=== PATIENT | male | born 1995 | race Caucasian/White ===

== ENCOUNTER 2017-01-16 07:28 | Emergency (ER) | payer OTHER ==
[~2017-01-16] VITALS: Ht 180.3 cm; Wt 81.6 kg
[~2017-01-16 07:28] MED LIST: AZIT250T PO; IBUP600T16 PO
[2017-01-16 07:38] VITALS: BP 131/77
--- NOTE | 2017-01-16 07:56 | PHYS DOC ---
General Chief Complaint: NAUSEA/VOMITING/DIARRHEA Stated Complaint: DIARRHEA X 3 DYS Time Seen by MD: 07:32 Source: patient Exam Limitations: no limitations Problems: History of Present Illness Initial Comments Pt is 21/M to ED c/o n/v/d. Pt states three days ago sudden onset n/v/d/chills/sweats/myalgias. Numerous loose watery stools no blood noted in stool/emesis. Was able to keep some liquids down yesterday but estimates 16 loose watery stools overnight. Weak/ dizzy with decrease urination today, no focal abdominal pain complaints. Timing/Duration: constant (3 days) Severity: severe Modifying Factors: worse with eating, worse with movement, improves with rest Associated Symptoms: diaphoresis, fever/chills, headaches, malaise, nausea/ vomiting, weakness, other Allergies: Coded Allergies: Sulfa (Sulfonamide Antibiotics) (Verified Allergy, Intermediate, 07/25/16) Past Medical History Medical History: no pertinent history Surgical History: noncontributory Social History Smoker: chew Alcohol: rarely Drugs: none Review of Systems Constitutional: denies chills, diaphoresis, denies fever, malaise Respiratory: denies cough, denies shortness of breath Cardiovascular: denies chest pain, denies palpitations Gastrointestinal: see HPI Genitourinary: denies dysuria, denies frequency, denies hematuria Musculoskeletal: see HPI, denies joint swelling, denies neck pain Psychiatric/Neurological: see HPI, denies numbness, denies paresthesia, denies weakness Hematologic/Lymphatic: denies blood clots, denies easy bleeding, denies easy bruising Physical Exam General Appearance: WD/WN, moderate distress Eyes: bilateral eye normal inspection, bilateral eye PERRL, bilateral eye EOMI Ear, Nose, Throat: hearing grossly normal, normal ENT inspection, normal pharynx Neck: non-tender, supple Respiratory: normal breath sounds, no respiratory distress Cardiovascular: normal peripheral pulses, regular rate, rhythm Gastrointestinal: soft (ND, BS nl, generalized muscle TTP no r/g/mass, neg mcburney/davis), no organomegaly Rectal: deferred Back: no CVA tenderness, no vertebral tenderness Extremities: non-tender, normal inspection Neurologic/Psychiatric: sas programmer remote II-XII nml as tested, no motor/sensory deficits, alert, normal mood/affect, oriented x 3 Skin: normal color, warm/dry Orders, Labs, Meds PATIENT: KOMAL DELGADO ACCOUNT: [id number] : 1995 LOCATION: ER AGE: 21 SEX: M EXAM STATUS: PRE ER ORD. PHYSICIAN: AMY CYR DO REASON: n/v/d PROCEDURE: ACUTE ABDOMEN SERIES Examination: Acute abdomen series History: History of abdominal pain, nausea, vomiting, diarrhea Comparison: None available Findings: The cardiomediastinal silhouette grossly appears unremarkable. There is no acute infiltrate or visualized pneumothorax identified The bowel gas pattern appears unremarkable. Tiny faint calcifications identified in the right upper quadrant and in the right pelvis region could be calcifications in the bowel probably food material, given the appearance. Impression: 1. No acute cardiopulmonary findings. 2. Unremarkable bowel gas pattern. 3.Tiny faint calcifications identified in the right upper quadrant and in the right pelvis region could be calcifications in the bowel probably food material, given the appearance. DICTATED AND SIGNED BY: AISLINN GARCES MD DATE: 01/16/17827 CC: BRICE CAMPOVERDE; AMY CYR DO ~ Labs/urine unremarkable Pt feeling much better with zofran/IV fluids. No further emesis, pain controlled. He expressed agreement/understanding with treatment plan. Departure Time of Disposition: 08:59 Disposition: 01 HOME, SELF-CARE Diagnosis: gastroenteritis, likely viral Condition: GOOD Patient Instructions: Viral Gastroenteritis, [id number] Additional Instructions: Rest, no strenuous activity. Clear liquids, advance to bland diet tomorrow as tolerated. Aggressive hydration with gatorade, water. OTC probiotics or cultured yogurt daily (alfred miguel) Rx: zofran odt, dicyclomine. Follow up with your doctor next week if not better. Return to ED with new or changing symptoms. AMY CYR DO January 16, 2017 07:56
[2017-01-16] MEDS ORDERED: IV NORMAL SALINE 1,000ML 1,000 ML IV SCH (08:15)
[2017-01-16] MEDS ORDERED: LIDOCAINE/PRILOCAINE TOPICAL CREAM 5GM TUBE. TP ONE (08:15)
[2017-01-16] MEDS ORDERED: ONDANSETRON PF 4 MG/2 ML VIAL. IV ONE (08:15)
[2017-01-16] MEDS ORDERED: FAMOTIDINE 20 MG/2 ML VIAL IVP ONE (08:15)
[2017-01-16 08:18] LABS: BASO % 0 % (0-3); EOS # 0.1 x10^3/uL (0.0-0.7); EOS % 2 % (0-3); HEMATOCRIT 43.9 % (39.0-53.0); HEMOGLOBIN 15.2 g/dL (13.0-17.5); LYMPH # 1.9 x10^3/uL (1.0-4.8); LYMPH % 36 % (24-48); MEAN CORPUSCULAR HEMOGLOBIN 31 pg (25-35); MEAN CORPUSCULAR HGB CONC 35 g/dL (31-37); MEAN CORPUSCULAR VOLUME 88 fL (79-100); MONO # 0.6 x10^3/uL (0.0-1.1); MONO % 10 % (0-9); NEUT # 2.8 x10^3uL (1.8-7.7); NEUT % 51 % (31-73); PLATELET COUNT 190 x10^3/uL (140-400); RED CELL DISTRIBUTION WIDTH 12.9 % (11.5-14.5); WHITE BLOOD COUNT 5.4 x10^3/uL (4.0-11.0)
[2017-01-16 08:20] LABS: BACTERIA,URINE 0 /HPF (0-FEW); BILIRUBIN,URINE NEG (NEG); CLARITY,URINE CLEAR; COLOR,URINE YELLOW; GLUCOSE,URINE NEG (NEG); NITRITE,URINE NEG (NEG); RBC,URINE OCC /HPF (0-2); SQUAMOUS EPITHELIAL CELL,UR OCC /LPF; UROBILINOGEN,URINE 0.2 mg/dL (0.2 mg/dL); WBC,URINE 0 /HPF (0-4)
[2017-01-16 08:22] LABS: AMPHETAMINE/METHAMPHETAMINE NEG (NEG); BARBITURATES NEG (NEG); BENZODIAZEPINES NEG (NEG); CANNABINOIDS NEG (NEG); COCAINE NEG (NEG); METHADONE NEG (NEG); OPIATES NEG (NEG); PHENCYCLIDINE NEG (NEG)
[2017-01-16 08:31] LABS: ALBUMIN 4.2 g/dL (3.4-5.0); ALBUMIN/GLOBULIN RATIO 1.2 (1.0-1.7); CALCIUM 9.1 mg/dL (8.5-10.1); CREATININE 1.1 mg/dL (0.7-1.3); POTASSIUM 4.2 mmol/L (3.5-5.1); TOTAL BILIRUBIN 0.7 mg/dL (0.2-1.0); TOTAL PROTEIN 7.7 g/dL (6.4-8.2)
--- NOTE | 2017-01-16 08:34 | RAD ---
Examination: Acute abdomen series History: History of abdominal pain, nausea, vomiting, diarrhea Comparison: None available Findings: The cardiomediastinal silhouette grossly appears unremarkable. There is no acute infiltrate or visualized pneumothorax identified The bowel gas pattern appears unremarkable. Tiny faint calcifications identified in the right upper quadrant and in the right pelvis region could be calcifications in the bowel probably food material, given the appearance. Impression: 1. No acute cardiopulmonary findings. 2. Unremarkable bowel gas pattern. 3.Tiny faint calcifications identified in the right upper quadrant and in the right pelvis region could be calcifications in the bowel probably food material, given the appearance.
[2017-01-16] MEDS ORDERED: ONDA4TAB10 PO (09:03)
[2017-01-16] MEDS ORDERED: DICY20TA3 PO (09:03)
== END 2017-01-16 09:58 | disposition home or self-care (01) ==
LOC: ER 07:28
DX: K52.9 Noninfective gastroenteritis and colitis, unspecified (principal); F17.220 Nicotine dependence, chewing tobacco, uncomplicated; Z88.2 Allergy status to sulfonamides
CPT/HCPCS: 36415; 74022; 80053; 80305; 81001; 82550; 83690; 85027; 96361; 96374; 96375; 99285; J2405; S0028; G0481; J7030

== ENCOUNTER 2018-12-08 20:35 | Emergency (ER) | payer OTHER ==
[~2018-12-08] VITALS: Ht 180.3 cm; Wt 90.7 kg
[~2018-12-08 20:35] MED LIST changes: +DICY20TA3 PO; +ONDA4TAB10 PO
--- NOTE | 2018-12-08 21:25 | PHYS DOC ---
Past History Past Medical History: Anxiety, Other Past Surgical History: Tonsillectomy Alcohol Use: None Drug Use: None Adult General Chief Complaint Chief Complaint: LOWER EXT PAIN [facility] HPI Patient is a 23-year-old male who presents with complaint of swelling and pain to his right lower leg. Patient states that he had injured his knee a little over a week ago and is scheduled to have an MRI tomorrow. He states that today he noticed swelling around his ratliff which had not been present prior to today. He states that areas also tender to palpation. He denies any cough, shortness of breath or chest pain. He rates pain in his lower leg is moderate and states the pain is worsened with weightbearing. Review of Systems Review of Systems Constitutional: Denies fever or chills [] Respiratory: Denies cough or shortness of breath [] Cardiovascular: No additional information not addressed in HPI [] Musculoskeletal: Complains of right knee and lower leg pain [] Allergies Allergies Allergies Coded Allergies Type Severity Reaction Last Updated Verified Sulfa (Sulfonamide Antibiotics) Allergy Intermediate 07/25/16 Yes Physical Exam Physical Exam Constitutional: Well developed, well nourished, no acute distress, non-toxic appearance. [] Cardiovascular:Heart rate regular rhythm, no murmur [] Lungs & Thorax: Bilateral breath sounds clear to auscultation [] Extremities: Examination of the right lower leg demonstrates some soft tissue swelling anteriorly in the anterior tibial region with small amount of ecchymosis and tenderness to palpation. There is no calf tenderness on exam. [] Current Patient Data Vital Signs Vital Signs Date Time Temp Pulse Resp B/P (MAP) Pulse Ox O2 Delivery O2 Flow Rate FiO2 12/08/18 20:52 98.1 72 20 97 Room Air EKG EKG [] Radiology/Procedures Radiology/Procedures [] Course & Med Decision Making Course & Med Decision Making Pertinent Labs and Imaging studies reviewed. (See chart for details) [] Dragon Disclaimer Dragon Disclaimer This electronic medical record was generated, in whole or in part, using a voice recognition dictation system. Departure Departure: Impression: Primary Impression: Swelling of lower extremity Disposition: 01 HOME, SELF-CARE Condition: STABLE Referrals: HOMERO MUNIZ PA-C (PCP) Patient Instructions: Edema, Musculoskeletal Pain KEVIN ROSEN Jr. DO Dec 08, 2018 21:25
[2018-12-08 22:50] VITALS: BP 124/78
== END 2018-12-08 22:55 | disposition home or self-care (01) ==
LOC: ER 20:35
DX: R22.41 Localized swelling, mass and lump, right lower limb (principal); M79.661 Pain in right lower leg; F41.9 Anxiety disorder, unspecified; Z88.2 Allergy status to sulfonamides
CPT/HCPCS: 36415; 85379; 99283

== ENCOUNTER 2020-12-15 11:35 | Emergency (ER) | payer OTHER ==
[~2020-12-15] VITALS: Ht 180.3 cm; Wt 95.9 kg
[2020-12-15 11:45] VITALS: BP 125/87
[2020-12-15] MEDS: BACITRACIN ZINC TOPICAL OINT PACKET. TP ONE (12:34)
[2020-12-15] MEDS: AMOXICILLIN/K CLAV 875/125MG TABLET. PO ONE (12:34)
--- NOTE | 2020-12-15 12:53 | PHYS DOC ---
Past History Past Medical History: Anxiety, Other Past Surgical History: Tonsillectomy Alcohol Use: None Drug Use: None Adult General Chief Complaint Chief Complaint: ANIMAL BITE HPI HPI Patient is a 25-year-old male who presents to the emergency department complaining of a dog bite injury to the right distal forearm. 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 Patient states the dogs immunizations are up-to-date, his [employer] employer is contacting animal control related to this incident. Patient states his immunizations are up-to-date, states his tetanus shot was less than 5 years. Patient states he is not worried that the dog has rabies and believes that the dog does not. Patient complains of mild swelling to the right distal wrist, minor bleeding, did not take any medications for pain, states his pain is a 4/10 pain on a 1-10 pain sc sandy. Patient states he can move his wrist and hand without any pain. Patient reports an allergy to sulfa medications, takes no prescription medications at home, reports a surgical history of a left wrist ganglion and tonsillectomy approximately 5 years ago. Patient denies any other physical complaints or physical concerns. Review of Systems Review of Systems 14 body systems of review of systems have been reviewed. See HPI for pertinent positives and negative responses, otherwise all other systems are negative, nonpertinent or noncontributory. Current Medications Current Medications Current Medications Medications (Trade) Dose Ordered Sig/Yunier Start Time Stop Time Status Last Admin Dose Admin Amoxicillin/ Clavulanate Potassium (Augmentin 875/ 125mg) 1 tab 1X ONCE 12/15/20 12:30 12/15/20 12:31 DC 12/15/20 12:34 1 TAB Bacitracin (Bacitracin Topical Pkt) 1 pkt 1X ONCE 12/15/20 12:30 12/15/20 12:31 DC 12/15/20 12:34 1 PKT Allergies Allergies Allergies Coded Allergies Type Severity Reaction Last Updated Verified Sulfa (Sulfonamide Antibiotics) Allergy Intermediate 07/25/16 Yes Physical Exam Physical Exam Constitutional: Well developed, well nourished, no acute distress, non-toxic appearance. 25-year-old male in no apparent distress. Has bandage over left distal forearm. HENT: Normocephalic, atraumatic, bilateral external ears normal, oropharynx moist, no oral exudates, nose normal. Eyes: No obvious discharge from eyes, conjunctiva appear normal, patient tracking normally. Neck: Normal range of motion. Cardiovascular: No cyanosis appreciated, distal cap refill less than 2 seconds. Lungs & Thorax: Patient no apparent respiratory distress, no audible adve ntitious lung sounds appreciated. Skin: Warm, dry, no erythema, no rash. See extremity note. Extremities: No tenderness, no cyanosis, no clubbing, ROM intact, no edema. Except for right distal forearm, noted 2 mm superficial partial-thickness puncture wound to dorsal skin surface just proximal to wrist, linear abrasions along right distal forearm consistent with dog bite wound. No bleeding appreciated, distal cap refill less than 2 seconds, full range of motion of elbow wrist and fingers/hand of the right, mild erythema along abrasions and puncture wound, no drainage noted, no bleeding noted, no signs of deep tissue infection appreciated, no compartment syndrome signs and symptoms appreciated. Neurologic: Alert and oriented X 3, normal motor function, normal sensory function, no focal deficits noted. Psychologic: Affect normal, judgement normal, mood normal. EKG EKG [] Radiology/Procedures Radiology/Procedures [] Heart Score C/O Chest Pain: No Risk Factors: Risk Factors: DM, Current or recent (<one month) smoker, HTN, HLP, family history of CAD, obesity. Risk Scores: Risk Factors: DM, Current or recent (<one month) smoker, HTN, HLP, family history of CAD, obesity. Course & Med Decision Making Course & Med Decision Making Pertinent Labs and Imaging studies reviewed. (See chart for details) 25-year-old male, vital signs reviewed, presents emergency department concerning of dog bite injury to right distal forearm. Physical examination consistent with dog bite with an injury, 1 puncture wound appreciated, partial-thickness skin injury, no bleeding was noted during physical exam. Will cleanse area and dressed with bacitracin and bandage. All wounds were superficial, imaging not indicated. Discussed with patient closure of puncture wound not recommended related to dog bite injury, will treat with daily wound care and bandage until healed. Discussed with patient follow-up with work comp for further evaluation and treatment. Will start on Augmentin p.o. twice daily x10 days for infection prophylaxis. Patient gave verbal understanding of discharge home instructions, wound care instructions, follow-up with work comp today, return to ER precautions and concerns, antibiotic use, patient had no further questions or concerns, patient was discharged home without incident. Diagnosis dog bite wound, low likelihood of compartment syndrome. Dragon Disclaimer Dragon Disclaimer This electronic medical record was generated, in whole or in part, using a voice recognition dictation system. Departure Departure: Impression: Primary Impression: Superficial wound due to dog bite Disposition: 01 DC HOME SELF CARE/HOMELESS Condition: GOOD Referrals: PCP,UNKNOWN (PCP) Patient Instructions: Abrasions, Puncture Wound, Wound Care, [id number] Additional Instructions: You were seen and treated in the emergency department today for a dog bite wound injury, as we discussed it is not recommended to close the puncture wound, please review wound care as we discussed, please follow-up with your work comp physician today, I am starting you on an antibiotic to prevent infection. I have given you a prescription for 600 mg ibuprofen tablets, you may take up to 3 times a day for pain and discomfort. Please return to the emergency department for worsening symptoms or other concerns. EMERGENCY DEPARTMENT GENERAL DISCHARGE INSTRUCTIONS Thank you for coming to [facility] (ED) today and trusting us with you care. We trust that you had a positivie experience in our Emergency Department. If you wish to speak to the department management, you may call the director at [phone]. YOUR FOLLOW UP INSTRUCTIONS ARE FOLLOWS: 1. Do you have a private Doctor? If you do not have a private doctor, please ask for a resource list of physicians or clinics that may be able to assist you with follow up care. 2. The Emergency Physician has interpreted your x-rays. The X-Ray specialist will also review them. If there is a change in the findings, you will be notified in 48 hours when at all possible. 3. A lab test or culture has been done, your results will be reviewed and you will be notified if you need a change in treatment. ADDITIONAL INSTRUCTIONS AND INFORMATION: 1. Your care today has been supervised by a physician who is specially trained in emergency care. Many problems require more than one evaluation for a complete diagnosis and treatment. We recommend that you schedule your follow up appointment as recommended to ensure complete treatment of you illness or injury. If you are unable to obtain follow up care and continue to have a problem, or if your condition worsens, we recommend that you return to the ED. 2. We are not able to safely determine your condition over the phone nor are we able to give sound medical advice over the phone. For these safety reasons, if you call for medical advice we will ask you to come to the ED for further evaluation. 3. If you have any questions regarding these discharge instructions please call the ED at [phone]. SAFETY INFORMATION: In the interest of safety, wellness, and injury prevention; we encourage you to wear your sealbelt, if you smoke; quite smoking, and we encourage family to use a protective helmet for bicycling and other sporting events that present an increased risk for head injury. IF YOUR SYMPTOMS WORSEN OR NEW SYMPTOMS DEVELOP, OR YOU HAVE CONCERNS ABOUT YOUR CONDITION; OR IF YOUR CONDITION WORSENS WHILE YOU ARE WAITING FOR YOUR FOLLOW UP APPOINTMENT; EITHER CONTACT YOUR PRIMARY CARE DOCTOR, THE PHYSICIAN WHOSE NAME AND NUMBER YOU WERE GIVEN, OR RETURN TO THE ED IMMEDIATELY. Scripts Bacitracin/Polymyxin B Sulfate (POLYSPORIN OINTMENT) 28.3 Gm Oint...g. 28.3 GM TP TID for WOUND CARE, #1 MISC 0 Refills Prov: MATTHEW NEGRO APRN 12/15/20 Ibuprofen (IBUPROFEN) 600 Mg Tablet 600 MG PO TID PRN PRN for PAIN, #20 TAB 0 Refills Prov: MATTHEW NEGRO APRN 12/15/20 Amoxicillin/Potassium Clav (AUGMENTIN 875-125 TABLET) 1 Each Tablet 1 TAB PO BID for DOG BITE INJURY for 10 Days, #20 TAB 0 Refills Prov: MATTHEW NEGRO APRN 12/15/20 MATTHEW NEGRO APRN Dec 15, 2020 12:53
[2020-12-15] MEDS ORDERED: AMOX1TAB61 PO (13:12)
[2020-12-15] MEDS ORDERED: IBUP600T16 PO (13:12)
[2020-12-15] MEDS ORDERED: BACI28.34 TP (13:17)
== END 2020-12-15 13:27 | disposition home or self-care (01) ==
LOC: ER 11:35
DX: S50.872A Other superficial bite of left forearm, initial encounter (principal); Z88.2 Allergy status to sulfonamides; W54.0XXA Bitten by dog, initial encounter; Y93.89 Activity, other specified; Y92.89 Other specified places as the place of occurrence of the external cause; Y99.8 Other external cause status
CPT/HCPCS: 99283-25